=== PATIENT | female | born 1995 | race Caucasian/White ===

== ENCOUNTER → 2021-02-05 | Outpatient (CLI) | payer OTHER ==
--- NOTE | 2021-02-05 17:09 | Diagnostic Imaging Report ---
EXAM: OB ultrasound complete. DATE: February 05, 2021. COMPARISON: None. INDICATION: 25-year-old female, supervision of otherwise normal . FINDINGS: Multiple grayscale sonographic images were obtained of the gravid uterus. Overview: Within the uterus there is a single living gestation in variable position. There is positive movement and heart motion. heart rate was identified at 147 beats per minute. The amnionic fluid volume is subjectively normal. The placenta is anterior and is approximately 2.0 cm from the cervical os. The cervical length is 6.3 cm. growth parameters are summarized in detail on the accompanying separate chart. The approximate mean gestational age by today's ultrasound measurements is 21 weeks 1 days +/- 1.5 week variability. Estimated weight based on today's measurements is 438 g. anatomic survey: There is no ventriculomegaly. The cerebellum, cavum septum pellucidum, falx, and cisterna magna are identified. There are limited images of the spine without demonstrated abnormality. There is visualization of the stomach, kidneys and urinary bladder. There is a grossly unremarkable four-chamber view of the heart. There is limited evaluation for a three-vessel umbilical cord and limited evaluation of the abdominal wall insertion. Four extremities are seen. The upper lip is not well seen. IMPRESSION: 1. Single living intrauterine with approximate mean gestational age of 21 weeks 1 days +/- 1.5 week. 2. Limitations of the survey without demonstrated abnormality. 3. The placenta is anterior and low-lying. Biometrical measurements are as follows: Biparietal 4.68 cm, age 20 weeks 2 days. Head circumference 17.90 cm, age 20 weeks 3 days. Abdominal circumference 17.21 cm, age 22 weeks 2 days. Femur length 3.61 cm, age 21 weeks 4 days. Sonographic estimate age: 21 weeks 1 days. Sonographic estimated date of delivery: 06/17/2021. Estimated Weight: 438 gm (+/- 64 gm). LMP percentile: 93%. heart rate: 147 beats per minute. number: 1 of 1. Dictated by: Dictated on workstation # [id number]
== END ==
LOC: RAD 15:15
PROVIDERS: ATTEND Nurse Practitioner Women's Health
DX: Z34.02 Encounter for supervision of normal first pregnancy, second trimester (principal); Z3A.21 21 weeks gestation of pregnancy
CPT/HCPCS: 76805

== ENCOUNTER 2021-06-18 22:11 | Inpatient (IN) | payer OTHER ==
[~2021-06-18] VITALS: Ht 157.5 cm; Wt 96.1 kg
[2021-06-18] MEDS ORDERED: DOXY1TAB6 PO (22:22)
[2021-06-18] MEDS ORDERED: FAMO-119 PO (22:22)
[2021-06-18] MEDS ORDERED: LEVO75CA5 PO (22:22)
[2021-06-18] MEDS ORDERED: ceFAZolin 2 GM IV Premixed 50 ML IV ONE (22:30)
[2021-06-18] MEDS ORDERED: METOCLOPRAMIDE INJ 10 MG/2 ML (REGLAN) IV ONE (22:30)
[2021-06-18] MEDS ORDERED: CITRIC ACID/SOB CIT (BICITRA) 30 ML UDC PO ONE (22:30)
[2021-06-18] MEDS ORDERED: FAMOTIDINE 20MG/2ML IV (PEPCID) IV ONE (22:30)
[2021-06-18] MEDS ORDERED: LACTATED RINGERS 1,000 ML IV PRN (22:30)
[2021-06-18 23:00] VITALS: BP 115/73
[2021-06-18 23:02] VITALS: BP 115/73
[2021-06-18 23:38] LABS: BASOPHILS % (AUTO) 0 % (0-10); EOSINOPHILS # (AUTO) 0.5 10^3/uL (0.0-0.3); EOSINOPHILS % (AUTO) 4 % (0-10); HEMATOCRIT 35 % (35-52); HEMOGLOBIN 11.4 g/dL (11.5-16.0); LYMPHOCYTES # (AUTO) 3.1 10^3/uL (1.0-4.0); LYMPHOCYTES % (AUTO) 24 % (12-44); MEAN CORPUSCULAR HEMOGLOBIN 29 pg (25-34); MEAN CORPUSCULAR HGB CONC 33 g/dL (32-36); MEAN CORPUSCULAR VOLUME 87 fL (80-99); MEAN PLATELET VOLUME 12.4 fL (9.0-12.2); MONOCYTES # (AUTO) 1.1 10^3/uL (0.0-1.0); MONOCYTES % (AUTO) 9 % (0-12); NEUTROPHILS # (AUTO) 8.3 10^3/uL (1.8-7.8); NEUTROPHILS % (AUTO) 63 % (42-75); PLATELET COUNT 247 10^3/uL (130-400); WHITE BLOOD COUNT 13.2 10^3/uL (4.3-11.0)
[2021-06-19] VITALS (15 sets, daily range): BP systolic 103–135; BP diastolic 59–97
--- NOTE | 2021-06-19 05:32 | History & Physical-OB ---
OB - Chief Complaint & HPI Date/Time Date of Admission: Date of Admission: Jun 18, 2021 at 22:51 Date seen by a Provider: Jun 19, 2021 Time Seen by a Provider: 06:30 Chief Complaint/History OB-Reason for Admission/Chief: Rupture of Membranes Hx : 1 Hx Para: 0 Expected Date of Delivery: Jun 21, 2021 Gestational Age in Weeks: 39 Gestational Age in Days: 5 Indication for : macrosomia Other reason for admission: Patient admitted after SROM with light meconium noted. She was seen in the office yesterday and measuring size>dates. EFW was noted in the >90%tile with 4500 gm/8usc20ej EFW. Due to considerations of complications to delivery, dystocia and damage to the we decided to proceed with PLTCS and she was scheduled for tomorrow at 39 weeks. Admission Nurse Assessment Rev: Yes History of Labs O pos Antibody neg RI RPR NR HBsAg NR HIV NR GC neg GBS neg Allergies and Home Medications Allergies Coded Allergies: No Known Drug Allergies (Unverified , 06/18/21) Patient Home Medication List Home Medication List Reviewed: Yes Doxylamine Succinate/Vit B6 (Bonjesta ER 20-20 mg Tablet) 1 Each Tab.ir.dr, 1 EACH PO, (Reported) Entered as Reported by: AUDREY MORAES on 06/18/212221 Last Action: New Order Famotidine (Pepcid) 20 Mg Tablet, 20 MG PO, (Reported) Entered as Reported by: AUDREY MORAES on 06/18/212221 Last Action: New Order Levothyroxine Sodium (Levothyroxine) 75 Mcg Capsule, 75 MCG PO, (Reported) Entered as Reported by: AUDREY MOREAS on 06/18/212221 Last Action: New Order OB - History Hx of Present Care: Yes Ultrasounds: Normal mid trimester US, Abnormal US findings (EFW >90%tile) Obstetrical Complications: None Medical Complications: None Patient Past Medical History hypothyroidism Immunizations Influenza Vaccine Up-to-Date: Yes; Up-to-Date OB - Admission Exam Physical Exam Vitals: Vital Signs 06/18/21 06/19/21 23:02 03:40 Temp 36.4 Pulse 78 Resp 18 B/P (MAP) 107/67 (80) Pulse Ox 98 O2 Delivery Room Air HEENT: NCAT Heart: Rhythm Normal Lungs: Clear Abdomen: Gravid Extremities: Normal Reflexes: Normal Cervical Dilatation: 2cm Effacement: 75% Station: -3 Membranes: Ruptured Amniotic Fluid: Thin Meconium Heart Rate: 120's Accelerations: Accelerations Present Decelerations: No Decelerations Short Term Variability: Present Snf Variability: Average (6-25) Contractions on Admission: 6-10 Minutes Apart Intensity: Mild Labs Laboratory Tests Test 06/18/21 22:45 Range/Units White Blood Count 13.2 H 4.3-11.0 10^3/uL Red Blood Count 3.97 3.80-5.11 10^6/uL Hemoglobin 11.4 L 11.5-16.0 g/dL Hematocrit 35 35-52 % Mean Corpuscular Volume 87 80-99 fL Mean Corpuscular Hemoglobin 29 25-34 pg Mean Corpuscular Hemoglobin Concent 33 32-36 g/dL Red Cell Distribution Width 14.4 10.0-14.5 % Platelet Count 247 130-400 10^3/uL Mean Platelet Volume 12.4 H 9.0-12.2 fL Immature Granulocyte % (Auto) 1 % Neutrophils (%) (Auto) 63 42-75 % Lymphocytes (%) (Auto) 24 12-44 % Monocytes (%) (Auto) 9 0-12 % Eosinophils (%) (Auto) 4 0-10 % Basophils (%) (Auto) 0 0-10 % Neutrophils # (Auto) 8.3 H 1.8-7.8 10^3/uL Lymphocytes # (Auto) 3.1 1.0-4.0 10^3/uL Monocytes # (Auto) 1.1 H 0.0-1.0 10^3/uL Eosinophils # (Auto) 0.5 H 0.0-0.3 10^3/uL Basophils # (Auto) 0.0 0.0-0.1 10^3/uL Immature Granulocyte # (Auto) 0.1 0.0-0.1 10^3/uL OB - Assessment/Plan/Diagnosis Assessment Assessment: section Admission Dx 26 yo @ 39 weeks macrosomia PLTCS GBS neg Admission Status: Inpatient Order (span 2 midnights) Reason for Inpatient Admission: PLTCS Plan Plan: Section JANET OVALLE DO Jun 19, 2021 05:32
[2021-06-19] MEDS ORDERED: CITRIC ACID/SOB CIT (BICITRA) 30 ML UDC ONE (05:44)
[2021-06-19] MEDS ORDERED: FAMOTIDINE 20MG/2ML IV (PEPCID) ONE (05:44)
[2021-06-19] MEDS ORDERED: ceFAZolin 2 GM IV Premixed 50 ML ONE (05:44)
[2021-06-19] MEDS ORDERED: METOCLOPRAMIDE INJ 10 MG/2 ML (REGLAN) ONE (05:44)
[2021-06-19] MEDS: LACTATED RINGERS 1,000 ML IV PRN ×2 (06:37→07:12)
[2021-06-19] MEDS ORDERED: ONDANSETRON 4 MG/2 ML (SDV) Z0FRAN IVP PRN (07:15)
[2021-06-19] MEDS ORDERED: TETANUS,DIPTH,PERTUSS P/F (BOOSTRIX) 0.5 ML VIAL IM SCH (07:15)
[2021-06-19] MEDS ORDERED: fentaNYL INJ 100 MCG/2 ML AMP ONE (07:15)
[2021-06-19] MEDS ORDERED: HYDROcodone/APAP 5 MG/325 MG (LORTAB) TAB PO PRN (07:15)
[2021-06-19] MEDS ORDERED: MEASLES,MUMPS,RUBELLA 1 EA INJ SC SCH (07:15)
[2021-06-19] MEDS ORDERED: NALOXONE 0.4 MG/ML 1 ML (NARCAN) VIAL IV PRN (07:15)
[2021-06-19] MEDS ORDERED: OXYTOCIN PRE-MIX DRIP 500 ML IV ONE ×2 (07:16→08:07)
--- NOTE | 2021-06-19 07:16 | Discharge Inst-Women's Service ---
Discharge Inst-Women's Serv Depart Medication/Instructions New, Converted or Re-Newed RX: Transmitted to Pharmacy Final Diagnosis POD 2 PLTCS Problems Reviewed?: Yes Consults/Follow Up Additional Follow Up: Yes Orders/Referrals Dr. Mobley in 7-10 days and in 6 weeks Activity Activity: Activity as Tolerated Driving Instructions: No Driving for 1 Week NO SMOKING: NO SMOKING Nothing Inside Vagina: No Douching, No [place], No Tampons Diet Discharge Diet: No Restrictions Symptoms to Report to : Bleeding Excessive, Pain Increased, Fever Over 101 Degrees F, Vaginal Bleeding Increase, Questions/Concerns For Any Problems or Questions: Contact Your Physician Skin/Wound Care Infection Signs and Symptoms: Increased Redness, Foul Odor of Wound, Increased Drainage, Skin Itchy or Has a Rash, Increased Swelling, Temperature Above 101 F Operative Area Clean and Dry: Keep Incision Clean/Dry Stitches/Pelican/Dermabond: Dermabond, Care of Stitches Bathing Instructions: JANET Gant DO Jun 19, 2021 07:16
[2021-06-19] MEDS ORDERED: IBUP-844 PO (07:18)
[2021-06-19] MEDS ORDERED: DOCU100C37 PO (07:18)
[2021-06-19] MEDS ORDERED: ACHD5005 PO (07:18)
[2021-06-19] MEDS ORDERED: PHENYLEPHRINE 100 MCG/ML 10 ML (ANESTHESIA) SYR ONE (07:37)
[2021-06-19] MEDS ORDERED: BUPIVACAINE 0.5% 30 ML (SENSORCAINE) VIAL ONE (07:59)
--- NOTE | 2021-06-19 09:00 | OPERATIVE REPORT ---
DATE OF SERVICE: PREOPERATIVE DIAGNOSES: 1. A 26-year-old G1, P0 at 39 weeks and 5 days gestation. 2. Suspected macrosomia. POSTOPERATIVE DIAGNOSES: 1. A 26-year-old G1, P0 at 39 weeks and 5 days gestation. 2. Suspected macrosomia. PROCEDURE: Primary low transverse section. SURGEON: Vimal Mobley DO ANESTHESIA: Spinal. ESTIMATED BLOOD LOSS: 500 mL. FLUIDS: 2400 mL lactated Ringer's solution. URINE OUTPUT: 75 mL of clear urine at the end of the procedure. FINDINGS: A live male weighing 9 pounds 2 ounces, Apgars of 7 and 9. Grossly normal appearing uterus, bilateral fallopian tubes and ovaries. SPECIMEN SENT: Placenta. INDICATIONS FOR PROCEDURE: This 26-year-old female is a patient who was seen in the office yesterday at 39 weeks. She was measuring size much greater than dates. Ultrasound revealed with an estimated weight greater than the 95th percentile. Due to concerns of should dystocia and the patient's body habitus, I discussed with the patient the option for after the risks were all reviewed for both dystocia versus . The patient opted to proceed with primary . Risks of procedure were discussed with the patient in detail and after all of her questions were answered, consent was obtained, the patient was taken to the operating room. OPERATIVE REPORT IN DETAIL: Once in the operating room, spinal analgesia was found to be adequate. She was placed in supine position with leftward tilt, prepped and draped in normal sterile fashion. Timeout was performed and anesthesia was tested. I then make a Pfannenstiel skin incision with a knife and carried down to layer of fascia using Bovie cautery. Fascial incision extended laterally using Bovie cautery. Superior aspect of fascial incision was then grasped with Yoandy clamps, tented up and dissected off the underlying rectus muscles. The inferior aspect of the fascial incision was then grasped with Yoandy clamps, tented up and dissected off the underlying rectus muscles. Rectus muscle dissected down the midline using Anderson scissors, which exposed the peritoneum, which I entered bluntly and extended using blunt traction. Eder ring retractor was placed in the peritoneal incision, which offers excellent lateral sidewall retraction. I identified the lower uterine segment, which was found to be thinned out and make a low transverse incision to the vesicouterine peritoneum and bluntly dissected this off the lower uterine segment, creating a bladder flap. I then proceeded with my myotomy until membranes were visualized, at which point I extended the uterine incision laterally and superiorly using bandage scissors. There is meconium-stained fluid noted at the time of my entry into the uterus. The was found in vertex presentation. With gentle fundal pressure, the infant's head was elevated up the incision, where it was delivered through the incision. The nares and oropharynx were bulb suctioned. Anterior and posterior shoulders were delivered. Infant was then brought to the operative field where the cord was doubly clamped and cut, and was handed off to waiting nurses in attendance. Cord blood was collected, 3-vessel cord with intact placenta was delivered spontaneously thereafter. IV Pitocin is initiated to facilitate uterine contraction. Uterine fundus confirmed by manual massage. The uterus was then exteriorized and cleared of all endometrial clots and debris. I then proceeded with closing the uterine incision using 0 Vicryl suture in running locked fashion. Second layer of imbricating 0 Monocryl was placed. Excellent hemostasis was noted after doing this. I then placed the uterus back in the pelvis, copiously irrigated the pelvis using normal saline. Once again, no active bleeding noted from any of my dissection planes. I placed Interceed antiadhesive over my low transverse incision. I removed the Eder ring retractor and then proceeded with closing the peritoneum using 3-0 Vicryl suture in running fashion. The rectus muscle reapproximated using 3-0 Vicryl suture in interrupted fashion. The fascia was reapproximated using 0 Vicryl suture in running fashion. Subcutaneous tissue was reapproximated using 3-0 plain interrupted subcutaneous stitch and skin reapproximated using 4-0 Monocryl in a running subcuticular. Dermabond was applied to incision and sterile dressing with adhesive white tape. The patient tolerated the procedure well and sent to recovery area in stable condition. Lap and sponge counts were correct at the end of procedure. Instrument counts correct as well. Two grams of Ancef were given preoperatively for infection prophylaxis. Job ID: [id number] DocumentID: [id number] Dictated Date: 06/19/2021 08:26:08 Key Account Representative Date: 06/19/2021 08:59:36 Dictated By: DO CUAUHTEMOC MOLINA
[2021-06-19] MEDS ORDERED: KETOROLAC 30 MG/ML VIAL ONE (09:15)
[2021-06-19] MEDS: KETOROLAC 30 MG/ML VIAL IV SCH ×3 (09:19→22:17)
[2021-06-19] MEDS: OXYTOCIN PRE-MIX DRIP 500 ML IV SCH ×2 (13:35→19:22)
[2021-06-19] MEDS: CATHETER FLUSH 10 ML SYR IV SCH ×2 (19:21→22:32)
[2021-06-19] MEDS: DOCUSATE SODIUM 100 MG (COLACE) CAP PO SCH ×2 (19:22→22:16)
[2021-06-20 03:10] VITALS: BP 116/72
[2021-06-20] MEDS: KETOROLAC 30 MG/ML VIAL IV SCH (04:43)
[2021-06-20 06:49] LABS: BASOPHILS % (AUTO) 0 % (0-10); EOSINOPHILS # (AUTO) 0.4 10^3/uL (0.0-0.3); EOSINOPHILS % (AUTO) 3 % (0-10); HEMATOCRIT 30 % (35-52); LYMPHOCYTES # (AUTO) 2.3 10^3/uL (1.0-4.0); LYMPHOCYTES % (AUTO) 19 % (12-44); MEAN CORPUSCULAR HEMOGLOBIN 29 pg (25-34); MEAN CORPUSCULAR HGB CONC 33 g/dL (32-36); MEAN CORPUSCULAR VOLUME 88 fL (80-99); MEAN PLATELET VOLUME 11.3 fL (9.0-12.2); MONOCYTES # (AUTO) 0.8 10^3/uL (0.0-1.0); MONOCYTES % (AUTO) 7 % (0-12); NEUTROPHILS # (AUTO) 8.5 10^3/uL (1.8-7.8); NEUTROPHILS % (AUTO) 70 % (42-75); PLATELET COUNT 226 10^3/uL (130-400); WHITE BLOOD COUNT 12.1 10^3/uL (4.3-11.0)
--- NOTE | 2021-06-20 09:02 | Progress Note ---
CRUZ RIVERA 06/20/21 0902: Subjective Date Seen by a Provider: Jun 20, 2021 Time Seen by a Provider: 08:57 Subjective/Events-last exam 26yo F POD 1 PLTCS. Reports some lower back soreness. Ambulating well. Regular diet. Normal lochia. Denies any urinary complaints or constipation. Denies fever, chills, nausea, vomiting, or diarrhea. Vitals labile. Objective Exam Last Set of Vital Signs Vital Signs Date Time Temp Pulse Resp B/P (MAP) Pulse Ox O2 Delivery O2 Flow Rate FiO2 06/20/21 03:10 36.6 87 18 116/72 (87) 97 Room Air Capillary Refill : Less Than 3 Seconds I&O Intake and Output 06/20/21 00:00 Intake Total 3150 ml Output Total 175 ml Balance 2975 ml Intake Oral 600 ml IV Total 2550 ml Output Urine Total 175 ml General: Alert, Oriented X3, Cooperative HEENT: EOMI Neck: Supple Lungs: Clear to Auscultation, Normal Air Movement Abdomen: Soft, No Tenderness Neuro: Normal Speech Psych/Mental Status: Mental Status NL Results Lab Laboratory Tests 06/20/21 06:32: White Blood Count 12.1H, Red Blood Count 3.43L, Hemoglobin 10.0L, Hematocrit 30L , Mean Corpuscular Volume 88, Mean Corpuscular Hemoglobin 29, Mean Corpuscular Hemoglobin Concent 33, Red Cell Distribution Width 14.5, Platelet Count 226, Mean Platelet Volume 11.3, Immature Granulocyte % (Auto) 1, Neutrophils (%) (Auto) 70, Lymphocytes (%) (Auto) 19, Monocytes (%) (Auto) 7, Eosinophils (%) (Auto) 3, Basophils (%) (Auto) 0, Neutrophils # (Auto) 8.5H, Lymphocytes # (Auto) 2.3, Monocytes # (Auto) 0.8, Eosinophils # (Auto) 0.4H, Basophils # (Auto) 0.0, Immature Granulocyte # (Auto) 0.1 Assessment/Plan Assessment/Plan Assess & Plan/Chief Complaint 26yo F POD 1 PLTCS Macrosomnia GBS - 06/20/21: Continue to breast feed Continue to ambulate Continue to use incentive spirometer Possible discharge tomorrow SANTI BERG DO 06/20/21 0936: Assessment/Plan Assessment/Plan Assess & Plan/Chief Complaint Agree with assessment and plan. Supervisory-Addendum Brief Verification & Attestation Participated in pt care: history, physical Personally performed: supervision of care Care discussed with: Medical Student Procedures: n/a I have seen and examined the patient and agree with assessment and plan. CRUZ RIVERA Jun 20, 2021 09:02 SANTI BERG DO Jun 20, 2021 09:36
[2021-06-20] MEDS ORDERED: IBUPROFEN 600 MG (MOTRIN) TAB PO ONE (09:41)
[2021-06-20] MEDS ORDERED: ACETAMINOPHEN 500 MG TAB (TYLENOL) PO PRN (09:45)
[2021-06-20 09:48] VITALS: BP 124/73
[2021-06-20] MEDS: DOCUSATE SODIUM 100 MG (COLACE) CAP PO SCH ×2 (09:49→21:44)
[2021-06-20] MEDS: IBUPROFEN 600 MG (MOTRIN) TAB PO SCH ×3 (09:49→21:43)
--- NOTE | 2021-06-20 12:25 | Anesthesia-Regional Post-Op ---
Regional Patient Condition Mental Status: Alert, Oriented x3 Circulation: Same as Pre-Op Headache: Absent Sensation: Full Recovery Motor Block: Absent Post Op Complications Complications None Follow Up Care/Instructions Patient Instructions None needed. Anesthesia/Patient Condition Patient is doing well, no complaints, stable vital signs, no apparent adverse anesthesia problems. No complications reported per nursing. RADHA GARCIA CRNA Jun 20, 2021 12:25
[2021-06-20 15:30] VITALS: BP 113/81
[2021-06-20 21:45] VITALS: BP 125/75
[2021-06-21] MEDS: IBUPROFEN 600 MG (MOTRIN) TAB PO SCH (04:21)
[2021-06-21 04:25] VITALS: BP 119/67
[2021-06-21 07:00] VITALS: BP 119/67
--- NOTE | 2021-06-21 09:00 | Progress Note ---
CRUZ RIVERA 06/21/21 0900: Subjective Date Seen by a Provider: Jun 21, 2021 Time Seen by a Provider: 08:55 Subjective/Events-last exam 26yo F POD 2 PLTCS. Currently breast feeding infant with in room. Reports continued lower back pain and some bilateral pedal edema, but same as yesterday. Continues to ambulate well, regular diet, and have normal lochia. Denies any complaints urinating or passing stool. Denies any fever, chills, nausea, vomiting, or diarrhea. Objective Exam Last Set of Vital Signs Vital Signs Date Time Temp Pulse Resp B/P (MAP) Pulse Ox O2 Delivery O2 Flow Rate FiO2 06/21/21 04:25 36.7 84 18 119/67 (84) 98 06/20/21 21:45 Room Air Capillary Refill : Less Than 3 Seconds I&O Intake and Output 06/21/21 00:00 Intake Total 800 ml Output Total 1150 ml Balance -350 ml Intake Oral 800 ml Output Urine Total 1150 ml General: Alert, Oriented X3, Cooperative HEENT: EOMI Neck: Supple Lungs: Clear to Auscultation Heart: Regular Rate Abdomen: Soft Extremities: No Cyanosis Skin: No Rashes Neuro: Normal Speech Psych/Mental Status: Mental Status NL, Mood NL Assessment/Plan Assessment/Plan Assess & Plan/Chief Complaint 26yo F POD 2 PLTCS Macrosomnia GBS - 06/21/21: Discharge today Continue to breast feed, ambulate, and use incentive spirometer Return if bleeding worsens or symptoms worsen 06/20/21: Continue to breast feed Continue to ambulate Continue to use incentive spirometer Possible discharge tomorrow SANTI BERG DO 06/21/21 0937: Supervisory-Addendum Brief Verification & Attestation Participated in pt care: history, physical Personally performed: supervision of care Care discussed with: Medical Student Procedures: n/a I have seen and examined patient and agree with assessment. CRUZ RIVERA Jun 21, 2021 09:00 SANTI BERG DO Jun 21, 2021 09:37
[2021-06-21 10:30] VITALS: BP 127/83
[2021-06-21] MEDS: DOCUSATE SODIUM 100 MG (COLACE) CAP PO SCH (10:30)
== END 2021-06-21 11:30 | disposition home or self-care (01) | DRG 788 ==
LOC: WSo 22:11 → LDRP 22:11 → WSo 22:50 → LDRP 22:51 → WS 06-19 10:47
PROVIDERS: ADMIT Obstetrics & Gynecology; ATTEND Obstetrics & Gynecology
PROC: 10D00Z1 Extraction of Products of Conception, Low, Open Approach (ICD-10-PCS; principal; 2021-06-19 07:21)
DX: O36.63X0 Maternal care for excessive fetal growth, third trimester, not applicable or unspecified (principal); Z37.0 Single live birth; O77.0 Labor and delivery complicated by meconium in amniotic fluid; O99.284 Endocrine, nutritional and metabolic diseases complicating childbirth; E03.9 Hypothyroidism, unspecified; Z3A.39 39 weeks gestation of pregnancy
CPT/HCPCS: 36415; 85025; 86850; 86900; 86901; 94664; 99212